=== PATIENT | male | born 1995 ===

== ENCOUNTER 2020-03-19 07:19 | Outpatient (CLI) | payer BC, SELFPAY ==
[2020-03-21 05:09] LABS: SARS-CoV-2 RNA Undetected (Undetected); SARS-CoV-2 Specimen Source Nasopharynx
== END 2020-03-19 07:39 ==
PROVIDERS: Visit Provider Family Medicine
DX: Z11.59 Encounter for screening for other viral diseases (principal)
CPT/HCPCS: U0003